=== PATIENT | female | born 1995 | race African-American/Black ===

== ENCOUNTER 2025-02-18 17:14 | Inpatient (IN) | payer MEDICAID ==
[~2025-02-18] VITALS: Ht 167.6 cm; Wt 72.0 kg
[2025-02-18 18:06] VITALS: PULSE 103; RESP 18; O2SAT 98
--- NOTE | 2025-02-18 18:11 | ED.PDOC ---
Sickle cell HPI Comments 29-year-old female with PMHx Sickle Cell Disease presents with a chief complaint of body pain x onset yesterday. Patient states that her last sickle cell crisis was x October 2024. Patient reports that her pain is localized all over, describes as sharp, and rates her pain a 10/10 at this time. Patient mentions that she takes Oxycodone at home, but has been out of them. No other symptoms or modifying factors present at this time. Chief Complaint: SICKLE CELL CRISIS Time Seen by MD: 17:59 Primary Care Provider: RUDY Luther Notes: Medications, Allergies Information Source: Patient Mode of Arrival: Ambulatory Severity: Moderate Timing: Days Duration: Since onset Prehospital treatment: None Onset: Spontaneous Symptoms: Pain Location of pain: Chest, Abdomen, Flank, Back, Extremity, Hands, Feet History of: Pain Associated signs and symptoms: None Past Medical History PAST MEDICAL HISTORY: Anemia, Anxiety, Asthma Surgical History: Denies all surgeries DOCUMENT MANAGEMENT SPECIALIST History: No Pertinent DOCUMENT MANAGEMENT SPECIALIST History Family History Family History: Reviewed,noncontributory to illness Social History Smoker: Cigarettes, Less Than 1 Pack/Day Alcohol: Denies ETOH Use Drugs: Denies Drug Use Lives In: Home Constitutional: denies: chills, diaphoresis, fatigue, fever, malaise, sweats, weakness, others EENTM: denies: blurred vision, double vision, ear bleeding, ear discharge, ear drainage, ear pain, ear ringing, eye pain, eye redness, hearing loss, mouth pain, mouth swelling, nasal discharge, nose bleeding, nose congestion, nose pain, photophobia, tearing, throat pain, throat swelling, voice changes, others Respiratory: denies: cough, hemoptysis, orthopnea, SOB at rest, shortness of breath, SOB with excertion, stridor, wheezing, others Cardiovascular: denies: chest pain, dizzy spells, diaphoresis, Dyspnea on exertion, edema, irregular heart beat, left arm pain, lightheadedness, palpitations, PND, syncope, others Gastrointestinal: denies: abdomen distended, abdominal pain, blood streaked bowels, constipated, diarrhea, dysphagia, difficulty swallowing, hematemesis, melena, nausea, poor appetite, poor fluid intake, rectal bleeding, rectal pain, vomiting, others Genitourinary: denies: abnormal vagina bleeding, burning, dyspareunia, dysuria, flank pain, frequency, hematuria, incontinence, pain, , vagina discharge, urgency, others Neurological: denies: dizziness, fainting, headache, left sided numbness, left sided weakness, numbness, paresthesia, pre-existing deficit, right sided numbness, right sided weakness, seizure, speech problems, tingling, tremors, weakness, others Musculoskeletal: reports: muscle pain; denies: back pain, gout, joint pain, j oint swelling, muscle stiffness, neck pain, others Integumetry: denies: bruises, change in color, change in hair/nails, dryness, laceration, lesions, lumps, rash, wounds, others Allergic/Immunocompromised: denies: Difficulty Healing, Frequent Infections, Hives, Itching, others Hematologic/Lymphatic: denies: anemia, blood clots, easy bleeding, easy bruising, swollen glands, others Endocrine: denies: excessive hunger, excessive sweating, excessive thirst, excessive urination, flushing, intolerance to cold, intolerance to heat, unexplained weight gain, unexplained weight loss, others Psychiatric: denies: anxiety, bipolar disorder, depression, hopeless, panic disorder, schizophrenia, sleepless, suicidal, others All Other Systems: Reviewed and Negative Physical Exam General Appearance: Moderate Distress, Thin HEENT: Normal ENT Inspection, Pharynx Normal, TMs Normal Neck: Full Range of Motion, Non-Tender, Normal, Normal Inspection Respiratory: Chest Non-Tender, Lungs Clear, No Accessory Muscle Use, No Respiratory Distress, Normal Breath Sounds Cardiovascular: No Edema, No JVD, No Murmur, No Gallop, Normal Peripheral Pulses, Regular Rate/Rhythm Breast Exam: Deferred Gastrointestinal: No Organomegaly, Non Tender, No Pulsatile Mass, Normal Bowel Sounds, Soft Genitalia: Deferred Pelvic: Deferred Rectal: Deferred Extremities: No calf tenderness, Normal capillary refill, Normal inspection, Normal range of motion, No pedal edema Musculoskeletal : Apperance: Normal Neurologic: Alert, painting supervisor II-XII nml as Tested, Motor Weakness, Normal Affect, Normal Mood, No Sensory Deficits Cerebellar Function: Normal Reflexes: Normal Skin: Dry, Normal Color, Warm Lymphatic: No Adenopathy Was a procedure done? Was a procedure done?: No Sickle cell Differential Dx Differential Diagnosis: Acute Chest Syndrome, Aplastic Crisis X-Ray, Labs, Meds, VS Vital Signs Date Time Temp Pulse Resp B/P (MAP) Pulse Ox O2 Delivery O2 Flow Rate FiO2 02/18/25 18:25 103 18 92/45 02/18/25 18:08 98.8 94 16 114/64 (81) 100 98.8 02/18/25 18:06 103 18 98 Room Air* 0 21 02/18/25 18:06 98.4 103 17 92/45 (61) 98 98.4 Lab Test 02/18/25 18:18 Range/Units White Blood Count 5.2 4.4-10.8 10^3/uL Red Blood Count 3.90 L 4.0-5.20 10^6/uL Hemoglobin 10.6 L 12.2-16.2 g/dL Hematocrit 32.0 L 36.0-46.0 % Mean Corpuscular Volume 81.8 80.0-100.0 fL Mean Corpuscular Hemoglobin 27.1 L 28.0-32.0 pg Mean Corpuscular Hemoglobin Concent 33.1 32.0-36.0 g/dL Red Cell Distribution Width 14.2 11.8-14.3 % Platelet Count 215 140-450 10^3/uL Mean Platelet Volume 7.9 6.9-10.8 fL Neutrophils (%) (Auto) 53.3 37.0-80.0 % Lymphocytes (%) (Auto) 32.0 10.0-50.0 % Monocytes (%) (Auto) 7.5 0.0-12.0 % Eosinophils (%) (Auto) 6.7 0.0-7.0 % Basophils (%) (Auto) 0.5 0.0-2.0 % Neutrophils # (Auto) 2.8 1.6-8.6 10 ^3/uL Lymphocytes # (Auto) 1.7 0.4-5.4 10 ^3/uL Monocytes # (Auto) 0.4 0-1.3 10 ^3/uL Eosinophils # (Auto) 0.4 0-0.8 10 ^3/uL Basophils # (Auto) 0 0-0.2 10 ^3/uL Nucleated Red Blood Cells 0.1 % Reticulocyte Count (auto) 0.76 0.5-1.5 % Sodium Level Pending Potassium Level Pending Chloride Level Pending Carbon Dioxide Level Pending Anion Gap Pending Blood Urea Nitrogen Pending Creatinine Pending Glomerular Filtration Rate Calc Pending BUN/Creatinine Ratio Pending Serum Glucose Pending Calcium Level Pending Current Medications Medications (Trade) Dose Ordered Sig/Marci Route Start Time Stop Time Status Last Admin Sodium Chloride 1,000 ml @ 1,000 mls/hr Q1H ONCE IV 02/18/25 18:15 02/18/25 19:14 02/18/25 18:24 Hydromorphone HCl (Dilaudid Injection) 1 mg ONCE ONCE IV 02/18/25 18:15 02/18/25 18:16 DC 02/18/25 18:25 Ondansetron HCl (Zofran) 4 mg ONCE ONCE IV 02/18/25 18:15 02/18/25 18:16 DC 02/18/25 18:25 IV Hep-Lock was established. The patient was given a 1 L bolus of normal saline The patient was given Dilaudid 1 mg IV push The patient was given Zofran 4 mg IV push The patient's reticulocyte count is 0.76 The patient's hemoglobin is 10.6 and hematocrit of 32 The patient is showing signs of anemia At this time, we are going to admit the patient with a diagnosis of sickle cell crisis Time of 1ST Reevaluation: 18:29 Reevaluation 1ST: Unchanged Patient Education/Counseling: Diagnosis, Treatment, Prognosis Family Education/Counseling: Diagnosis, Treatment, Prognosis Departure 1 Departure Time of Disposition: 18:52 Impression: Primary Impression: Sickle cell crisis Disposition: ADMITTED INPATIENT Admit to: Med Surg Condition: Fair Critical Care Note Critical Care Time?: No Stability Stability form required: Yes Unstable for transfer: ED Physician Assesment (Clinical assesment) Heart Score Heart Score: Heart Score Response (Comments) Value History N/A 0 EKG N/A 0 Age N/A 0 Risk Factors N/A 0 Troponin N/A 0 Total 0 I personally scribed for JONNY HOOPER MD ([email or web address]) on 02/18/25 at 18:11. Electronically submitted by Rafal Metzger ([email or web address]). JONNY HOOPER MD February 18, 2025 18:11
[2025-02-18] MEDS: SODIUM CHLORIDE 0.9% 1,000 ML IV ONE ×2 (18:24→19:59)
[2025-02-18] MEDS: HYDROmorphone HCL 2 MG/ML VL/or syr IV ONE (18:25)
[2025-02-18] MEDS: ONDANSETRON HCL 4 MG/2 ML VIAL IV ONE (18:25)
[2025-02-18 18:47] LABS: Basophils # (auto) 0 10 ^3/uL (0-0.2); Basophils % (auto) 0.5 % (0.0-2.0); Eosinophils # (auto) 0.4 10 ^3/uL (0-0.8); Eosinophils % (auto) 6.7 % (0.0-7.0); Hemoglobin 10.6 g/dL (12.2-16.2); Lymphocytes # (auto) 1.7 10 ^3/uL (0.4-5.4); Mean Corpuscular Hemoglobin 27.1 pg (28.0-32.0); Mean Corpuscular Hgb Conc. 33.1 g/dL (32.0-36.0); Mean Corpuscular Volume 81.8 fL (80.0-100.0); Monocytes # (auto) 0.4 10 ^3/uL (0-1.3); Monocytes % (auto) 7.5 % (0.0-12.0); Neutrophils # (auto) 2.8 10 ^3/uL (1.6-8.6); Neutrophils % (auto) 53.3 % (37.0-80.0); Nucleated Red Blood Cells % 0.1 %; Platelet Count (auto) 215 10^3/uL (140-450); Red Cell Distribution Width 14.2 % (11.8-14.3); White Blood Cell 5.2 10^3/uL (4.4-10.8)
[2025-02-18 18:48] LABS: Chloride 107 mmol/L (98-107); Sodium 141 mmol/L (136-145)
[2025-02-18 18:49] LABS: Anion Gap 9 (5-15); Calcium 9.2 mg/dL (8.7-10.4); Carbon Dioxide 25 mmol/L (20-31)
[2025-02-18 18:54] LABS: Glucose 76 mg/dL (74-106)
[2025-02-18 18:58] LABS: BUN/Creatinine Ratio 5.7 (10.0-20.0); Blood Urea Nitrogen < 5 mg/dL (9-23)
[2025-02-18 19:30] VITALS: PULSE 70; RESP 15; O2SAT 92
[2025-02-18] MEDS ORDERED: ONDANSETRON HCL 4 MG/2 ML VIAL IV PRN (19:45)
[2025-02-18] MEDS ORDERED: ACETAMINOPHEN 325 MG TAB PO PRN (19:45)
[2025-02-18] MEDS ORDERED: ALBUTEROL SULF 2.5 MG/0.5ML(0.5%) NEB SOLN NEB PRN (19:45)
[2025-02-18] MEDS ORDERED: HYDROcodone-ACET 5/325MG TAB PO PRN (19:45)
[2025-02-18 19:47] VITALS: BP 92/45; PULSE 98; RESP 18; TEMP 98.8; O2SAT 99
--- NOTE | 2025-02-18 21:49 | DVHHP2 ---
History of Present Illness Reason for Visit: Body pain History of Present Illness 29-year-old female with a history of sickle cell disease presents for evaluation of body pain. Patient reports a two day history of generalized body pain. She states having last sickle cell crisis three months ago. Denies shortness or breath or chest pain. Past Medical History Anemia, asthma and sickle cell disease Past Surgical History Denies Family History Noncontributory Smoke: <1 pack per day ALCOHOL: none Drugs: None Lives: with Family Review of Systems Review of Systems Review of systems are currently negative otherwise addressed in HPI. Allergies: Coded Allergies: NO KNOWN ALLERGIES (Unverified , 05/13/16) Medications Current Medications Medications Dose Ordered Sig/Marci Route Start Time Stop Time Status Last Admin Dose Admin Acetaminophen/ Hydrocodone Bitart 1 tab Q4HP PRN PO 02/18/25 19:45 Temazepam 15 mg QHSP PRN PO 02/18/25 19:45 Ondansetron HCl 4 mg Q4HP PRN IV 02/18/25 19:45 Acetaminophen 650 mg Q6HP PRN PO 02/18/25 19:45 Morphine Sulfate 2 mg Q4HPRN PRN IV 02/18/25 19:45 Ferrous Sulfate 325 mg BIDWM PO 02/19/25 08:00 Albuterol 2.5 mg Q6HPRN PRN NEB 02/18/25 19:45 Exam Vital Signs Vital Signs Date Time Temp Pulse Resp B/P (MAP) Pulse Ox O2 Delivery O2 Flow Rate FiO2 02/18/25 19:47 98.8 98 18 92/45 99 98.8 02/18/25 19:30 Room Air* 0 21 Exam Gen: 29-year-old female in no apparent distress. Skin: Warm, dry, normal color and texture, no rash. HEENT: Normocephalic atraumatic, mucous membranes moist and pink. Neck: Cervical and supraclavicular nodes normal without enlargement, trachea is midline, thyroid gland is normal without masses. Pulmonary: Clear to auscultation and percussion bilaterally. Cardiac: Regular rate and rhythm. No murmur Abdomen: Soft, nontender, nondistended, bowel sounds present all 4 quadrants, no guarding, no rigidity, no organomegaly. Extremities: No cyanosis, clubbing, no edema Neuro: Cranial nerves II through XII grossly intact, normal affect and speech, no focal motor deficits. Labs/Xrays Labs Test 02/18/25 18:18 Range/Units White Blood Count 5.2 4.4-10.8 10^3/uL Red Blood Count 3.90 L 4.0-5.20 10^6/uL Hemoglobin 10.6 L 12.2-16.2 g/dL Hematocrit 32.0 L 36.0-46.0 % Mean Corpuscular Volume 81.8 80.0-100.0 fL Mean Corpuscular Hemoglobin 27.1 L 28.0-32.0 pg Mean Corpuscular Hemoglobin Concent 33.1 32.0-36.0 g/dL Red Cell Distribution Width 14.2 11.8-14.3 % Platelet Count 215 140-450 10^3/uL Mean Platelet Volume 7.9 6.9-10.8 fL Neutrophils (%) (Auto) 53.3 37.0-80.0 % Lymphocytes (%) (Auto) 32.0 10.0-50.0 % Monocytes (%) (Auto) 7.5 0.0-12.0 % Eosinophils (%) (Auto) 6.7 0.0-7.0 % Basophils (%) (Auto) 0.5 0.0-2.0 % Neutrophils # (Auto) 2.8 1.6-8.6 10 ^3/uL Lymphocytes # (Auto) 1.7 0.4-5.4 10 ^3/uL Monocytes # (Auto) 0.4 0-1.3 10 ^3/uL Eosinophils # (Auto) 0.4 0-0.8 10 ^3/uL Basophils # (Auto) 0 0-0.2 10 ^3/uL Nucleated Red Blood Cells 0.1 % Reticulocyte Count (auto) 0.76 0.5-1.5 % Sodium Level 141 136-145 mmol/L Potassium Level 4.0 3.5-5.1 mmol/L Chloride Level 107 98-107 mmol/L Carbon Dioxide Level 25 20-31 mmol/L Anion Gap 9 5-15 Blood Urea Nitrogen < 5 L 9-23 mg/dL Creatinine 0.88 0.550-1.02 mg/dL Glomerular Filtration Rate Calc 90 >90 mL/min BUN/Creatinine Ratio 5.7 L 10.0-20.0 Serum Glucose 76 74-106 mg/dL Calcium Level 9.2 8.7-10.4 mg/dL Assessment/Plan Assessment/Plan Assessment Sickle cell crisis Mild anemia Chronic pain syndrome Plan Maintenance IV fluids Pain management Resume home medications Continue treatment per orders. Plan discussed with: Patient My Orders Orders - YOANA RODRIGUES Procedure Category Date Status Time Sodium Chloride 0.9% PHA 02/18/25 In Process 19:45 Admit ADMIT 02/18/25 Transmitted 19:38 Hydrocodone-Acet PHA 02/18/25 In Process 5/325mg Tab ([place] 19:45 Temazepam (Restoril) PHA 02/18/25 In Process 19:45 Ondansetron Hcl PHA 02/18/25 In Process (Zofran) 19:45 Complete Blood Count LAB 02/19/25 Verified 04:00 Condition: Stable ROSALBA 02/18/25 In Process 19:38 Acetaminophen Tablet PHA 02/18/25 In Process (Tylenol Tablet) 19:45 Bedrest With Bathroom ROSALBA 02/18/25 In Process Privileg 19:38 Regular Diet DIET 02/19/25 Transmitted Breakfast Ferrous Sulfate Tablet PHA 02/19/25 In Process 08:00 Albuterol Medneb PHA 02/18/25 In Process (Ventolin Medneb) 19:45 Morphine Sulfate PHA 02/18/25 In Process Injection 19:45 Date of Service: February 18, 2025 Billing Provider: YOANA RODRIGUES Common Visit Codes: [id number] INP/OBS CARE (MOD) YOANA RODRIGUES February 18, 2025 21:49
[2025-02-18] MEDS: MORPHINE SULFATE 4 MG/ML SYR/VIAL IV PRN (23:07)
[2025-02-18 23:52] VITALS: BP 113/72; PULSE 68; RESP 18; TEMP 98.9; O2SAT 98
[2025-02-19] VITALS (11 sets, daily range): BP systolic 97–120; BP diastolic 58–72; PULSE 60–78; RESP 16–18; TEMP 98–98.9; O2SAT 97–100
[2025-02-19] MEDS: TEMAZEPAM 15 MG CAP PO PRN (01:20)
[2025-02-19] MEDS: FERROUS SULFATE 325mg EC TAB PO SCH (08:57)
[2025-02-19 09:15] LABS: Basophils # (auto) 0 10 ^3/uL (0-0.2); Basophils % (auto) 0.5 % (0.0-2.0); Eosinophils # (auto) 0.4 10 ^3/uL (0-0.8); Hematocrit 29.4 % (36.0-46.0); Hemoglobin 9.6 g/dL (12.2-16.2); Lymphocytes # (auto) 1.4 10 ^3/uL (0.4-5.4); Lymphocytes % (auto) 34.1 % (10.0-50.0); Mean Corpuscular Hemoglobin 26.7 pg (28.0-32.0); Mean Corpuscular Hgb Conc. 32.7 g/dL (32.0-36.0); Mean Corpuscular Volume 81.7 fL (80.0-100.0); Monocytes # (auto) 0.3 10 ^3/uL (0-1.3); Monocytes % (auto) 6.9 % (0.0-12.0); Neutrophils # (auto) 2.1 10 ^3/uL (1.6-8.6); Neutrophils % (auto) 49.5 % (37.0-80.0); Platelet Count (auto) 199 10^3/uL (140-450); Red Cell Distribution Width 14.3 % (11.8-14.3); White Blood Cell 4.2 10^3/uL (4.4-10.8)
[2025-02-19] MEDS: SODIUM CHLORIDE 0.9% 1,000 ML IV SCH (10:15)
[2025-02-19] MEDS: OXYCODONE W/ ACETAMINOPHEN 5/325MG TABLET PO SCH (14:50)
--- NOTE | 2025-02-19 18:11 | DVHPNRES ---
Progress Note Date Seen: February 19, 2025 Resident Creating Document: KHARI SCHUMACHER RESIDENT Medical Necessity Reason Pt with a Central, PICC or Fol: No Subjective Review of Systems Patient seen and examined at bed side no new complains pain is under control Objective vital signs Vital Sign Date Time Temp Pulse Resp B/P (MAP) Pulse Ox O2 Delivery O2 Flow Rate FiO2 02/19/25 17:00 98.0 67 18 106/64 (78) 98 98.0 02/19/25 10:35 Room Air* 0 21 Total Intake and Output 02/18/25 02/18/25 02/19/25 15:00 23:00 07:00 Intake Total 1000 ml 400 ml Balance 1000 ml 400 ml medications Current Medications Medications Dose Ordered Sig/Marci Route Start Time Stop Time Status Last Admin Dose Admin Acetaminophen/ Hydrocodone Bitart 1 tab Q4HP PRN PO 02/18/25 19:45 Temazepam 15 mg QHSP PRN PO 02/18/25 19:45 02/19/25 01:20 15 MG Ondansetron HCl 4 mg Q4HP PRN IV 02/18/25 19:45 Acetaminophen 650 mg Q6HP PRN PO 02/18/25 19:45 Morphine Sulfate 2 mg Q4HPRN PRN IV 02/18/25 19:45 02/19/25 13:22 2 MG Ferrous Sulfate 325 mg BIDWM PO 02/19/25 08:00 02/19/25 08:57 325 MG Albuterol 2.5 mg Q6HPRN PRN NEB 02/18/25 19:45 Oxycodone/ Acetaminophen 1 tab TID PO 02/19/25 14:00 02/19/25 14:50 1 TAB Sodium Chloride 1,000 ml @ 100 mls/hr Q10H IV 02/19/25 10:15 02/19/25 10:15 100 MLS/HR Examination General Appearance: Cooperative. Well developed. Well nourished. NAD Head Exam: Normal inspection Neck Exam: Normal inspection. Non-tender. Normal alignment Pulmonary/Respiratory: Chest non-tender. Clear bilateral breath sounds Cardiovascular/Chest: Regular rate and rhythm. No murmurs. No JVD. Peripheral Pulses: 2+ Radial (R). 2+ Radial (L). 2+ Pedal (R). 2+ Pedal (L) Abdominal Exam: Normal bowel sounds. Soft. Nontender. No hepatospenomegaly. No masses Ankle Exam: Negative ankle edema Lower extremities: Negative lower extremity edema Neuro/Mental Status: A&O x4. Coherent Thoughts/Psych: Normal thought pattern. Appropriate mood and affect. Good judgement and insight Appearance: In no acute distress Skin Exam: Normal inspection. Normal color. Warm. Dry laboratory and microbiology Laboratory Tests 02/19/25 08:59 02/18/25 18:18 Test 02/18/25 18:18 Range/Units Serum Glucose 76 74-106 mg/dL Problem List/Assessment/Plan Problem List/Assessment/Plan Sickle cell crisis dehydration microcytic hypochromic anemia ? iron deficiency anemia Plan/Recommendation -IV fluid -Pain management: Oxycodone 5/325 mg TID -Iron panel for possible iron def -Monitor H&H -Continue monitor rft and lft goals of care discussed >22 min, full code Plan discussed with Plan discussed with: Patient, Other My Orders My Orders Orders - KHARI SCHUMACHER RESIDENT Procedure Category Date Status Time Oxycodone W/ Acet PHA 02/19/25 In Process /325mg Tab (Percocet 14:00 Sodium Chloride 0.9% PHA 02/19/25 In Process 10:15 Date of Service: February 19, 2025 Billing Provider: DIANA LOWERY MD Common Visit Codes: [id number] INP/OBS CARE(HIGH) KHARI SCHUMACHER February 19, 2025 18:11 DIANA LOWERY MD February 19, 2025 21:44
[2025-02-19 18:36] LABS: Albumin 3.9 g/dL (3.2-4.8); Alkaline Phosphatase 48 U/L (46-116); Anion Gap 5 (5-15); Aspartate Aminotransferase 15 U/L (13-40); BUN/Creatinine Ratio 8.3 (10.0-20.0); Bilirubin, Total 0.8 mg/dL (0.2-1.0); Carbon Dioxide 24 mmol/L (20-31); Glucose 88 mg/dL (74-106); Potassium 4.2 mmol/L (3.5-5.1); Sodium 142 mmol/L (136-145); Total Protein 6.8 g/dL (5.7-8.2)
[2025-02-19 18:38] LABS: Alanine Aminotransferase < 9 U/L (7-40); Blood Urea Nitrogen 7 mg/dL (9-23); Chloride 113 mmol/L (98-107)
[2025-02-20] VITALS (9 sets, daily range): BP systolic 103–127; BP diastolic 60–75; PULSE 58–84; RESP 15–18; TEMP 97.3–97.8; O2SAT 100
[2025-02-20 06:23] LABS: Basophils # (auto) 0 10 ^3/uL (0-0.2); Basophils % (auto) 0.6 % (0.0-2.0); Eosinophils # (auto) 0.5 10 ^3/uL (0-0.8); Eosinophils % (auto) 11.9 % (0.0-7.0); Hemoglobin 8.9 g/dL (12.2-16.2); Lymphocytes # (auto) 1.6 10 ^3/uL (0.4-5.4); Lymphocytes % (auto) 39.5 % (10.0-50.0); Mean Corpuscular Volume 81.9 fL (80.0-100.0); Monocytes # (auto) 0.3 10 ^3/uL (0-1.3); Monocytes % (auto) 7.5 % (0.0-12.0); Neutrophils # (auto) 1.7 10 ^3/uL (1.6-8.6); Neutrophils % (auto) 40.5 % (37.0-80.0); Nucleated Red Blood Cells % 0.2 %; Platelet Count (auto) 170 10^3/uL (140-450); Red Cell Distribution Width 14.2 % (11.8-14.3); White Blood Cell 4.1 10^3/uL (4.4-10.8)
[2025-02-20 06:46] LABS: % Iron Saturation 6.4 % (15-50)
[2025-02-20 07:48] LABS: INR 1.11 (0.9-1.15); Partial Thromboplastin Time 24.8 SEC (24.5-34.5); Prothrombin Time 11.6 sec (9.3-11.8)
--- NOTE | 2025-02-20 10:01 | DVH ---
CHEST RADIOGRAPH Indication: sickle cell Technique: Single frontal view of the chest was obtained Comparison: None FINDINGS: Lines and Tubes: None Lungs: No focal consolidation. Pleura: No effusion. No pneumothorax. Cardiomediastinal contours: Unremarkable Bones: No acute osseous abnormality. IMPRESSION: No acute cardiopulmonary disease.
--- NOTE | 2025-02-20 16:01 | DVHPNRES ---
Progress Note Date Seen: February 20, 2025 Resident Creating Document: KHARI SCHUMACHER RESIDENT Medical Necessity Reason Pt with a Central, PICC or Fol: No Subjective Review of Systems patient seen and examined at bed side pain is under control no active bleed no new complains Objective vital signs Vital Sign Date Time Temp Pulse Resp B/P (MAP) Pulse Ox O2 Delivery O2 Flow Rate FiO2 02/20/25 12:54 97.4 77 18 127/75 (92) 100 97.4 02/20/25 10:30 Room Air 0.0 02/20/25 10:30 21 Total Intake and Output 02/19/25 02/19/25 02/20/25 15:00 23:00 07:00 Intake Total 2600 ml 100 ml Balance 2600 ml 100 ml medications Current Medications Medications Dose Ordered Sig/Marci Route Start Time Stop Time Status Last Admin Dose Admin Acetaminophen/ Hydrocodone Bitart 1 tab Q4HP PRN PO 02/18/25 19:45 Temazepam 15 mg QHSP PRN PO 02/18/25 19:45 02/19/25 01:20 15 MG Ondansetron HCl 4 mg Q4HP PRN IV 02/18/25 19:45 Acetaminophen 650 mg Q6HP PRN PO 02/18/25 19:45 Morphine Sulfate 2 mg Q4HPRN PRN IV 02/18/25 19:45 02/19/25 18:41 2 MG Ferrous Sulfate 325 mg BIDWM PO 02/19/25 08:00 02/20/25 09:12 325 MG Albuterol 2.5 mg Q6HPRN PRN NEB 02/18/25 19:45 Oxycodone/ Acetaminophen 1 tab TID PO 02/19/25 14:00 02/20/25 15:33 1 TAB Iron Sucrose 110 ml @ 110 mls/hr DAILY@1200 IV 02/20/25 12:00 02/21/25 12:59 UNV Examination General Appearance: Cooperative. Well developed. Well nourished. NAD Head Exam: Normal inspection Neck Exam: Normal inspection. Non-tender. Normal alignment Pulmonary/Respiratory: Chest non-tender. Clear bilateral breath sounds Cardiovascular/Chest: Regular rate and rhythm. No murmurs. No JVD. Peripheral Pulses: 2+ Radial (R). 2+ Radial (L). 2+ Pedal (R). 2+ Pedal (L) Abdominal Exam: Normal bowel sounds. Soft. Nontender. No hepatospenomegaly. No masses Ankle Exam: Negative ankle edema Lower extremities: Negative lower extremity edema Neuro/Mental Status: A&O x4. Coherent Thoughts/Psych: Normal thought pattern. Appropriate mood and affect. Good judgement and insight Appearance: In no acute distress Skin Exam: Normal inspection. Normal color. Warm. Dry laboratory and microbiology Laboratory Tests 02/20/25 05:48 02/19/25 08:59 Test 02/19/25 08:59 Range/Units Serum Glucose 88 74-106 mg/dL Problem List/Assessment/Plan Problem List/Assessment/Plan Sickle cell crisis dehydration microcytic hypochromic anemia iron deficiency anemia Plan/Recommendation -continue to monitor H&H, ranging reticulocyte count, LDH 135. Trending down hemoglobin, possible crisis. Continue to monitor hemoglobin and hematocrit. Blood transfusion if hemoglobin less than seven. -IV fluid -Pain management: Oxycodone 5/325 mg TID -Iron panel for possible iron def -Continue monitor rft and lft goals of care discussed >22 min, full code Plan discussed with Plan discussed with: Patient, Other (RN) My Orders My Orders Orders - KHARI SCHUMACHER RESIDENT Procedure Category Date Status Time Chest Xray 1 View XY 02/20/25 Resulted 07:07 Iron Sucrose Complex PHA 02/20/25 Logged (Venofer) 12:00 Date of Service: February 20, 2025 Billing Provider: DIANA LOWERY MD Common Visit Codes: [id number] INP/OBS CARE(HIGH) KHARI SCHUMACHER February 20, 2025 16:01 DIANA LOWERY MD February 21, 2025 05:10
[2025-02-20] MEDS: IRON SUCROSE COMPLEX 110 ML IV SCH (18:23)
[2025-02-21] VITALS (7 sets, daily range): BP systolic 104–117; BP diastolic 57–78; PULSE 55–82; RESP 15–16; TEMP 36.6; O2SAT 98–100
[2025-02-21 06:50] LABS: Basophils # (auto) 0 10 ^3/uL (0-0.2); Basophils % (auto) 0.5 % (0.0-2.0); Eosinophils # (auto) 0.5 10 ^3/uL (0-0.8); Eosinophils % (auto) 10.1 % (0.0-7.0); Hematocrit 26.9 % (36.0-46.0); Lymphocytes # (auto) 1.6 10 ^3/uL (0.4-5.4); Lymphocytes % (auto) 35.9 % (10.0-50.0); Mean Corpuscular Hemoglobin 27.3 pg (28.0-32.0); Mean Corpuscular Hgb Conc. 33.4 g/dL (32.0-36.0); Mean Corpuscular Volume 81.9 fL (80.0-100.0); Monocytes # (auto) 0.3 10 ^3/uL (0-1.3); Monocytes % (auto) 7.4 % (0.0-12.0); Neutrophils # (auto) 2.1 10 ^3/uL (1.6-8.6); Neutrophils % (auto) 46.1 % (37.0-80.0); Nucleated Red Blood Cells % 0.1 %; Platelet Count (auto) 152 10^3/uL (140-450); Red Blood Cells 3.29 10^6/uL (4.0-5.20); Red Cell Distribution Width 14.1 % (11.8-14.3); White Blood Cell 4.5 10^3/uL (4.4-10.8)
[2025-02-21 06:51] LABS: Potassium 3.9 mmol/L (3.5-5.1); Sodium 143 mmol/L (136-145)
[2025-02-21 06:52] LABS: Anion Gap 7 (5-15); Calcium 8.9 mg/dL (8.7-10.4); Carbon Dioxide 26 mmol/L (20-31)
[2025-02-21 06:57] LABS: BUN/Creatinine Ratio 6.3 (10.0-20.0); Glucose 87 mg/dL (74-106)
[2025-02-21 06:59] LABS: Blood Urea Nitrogen 5 mg/dL (9-23); Chloride 110 mmol/L (98-107)
[2025-02-21] MEDS ORDERED: PERCOT PO (11:55)
[2025-02-21] MEDS ORDERED: POLY335015 PO (12:18)
[2025-02-21] MEDS ORDERED: FER325T PO (12:18)
--- NOTE | 2025-02-21 16:00 | DVHDSRES ---
Discharge Summary Date of Admission Resident Creating Document: CARLITO DEVINE RESIDENT February 18, 2025 at 19:38 Date of Discharge: February 21, 2025 Admitting Diagnosis Worsening generalized body pain Wounds: none Labs/Diagnostic Data: Laboratory Results Test 02/21/25 05:10 02/20/25 10:27 02/20/25 05:48 02/19/25 08:59 White Blood Count 4.5 10^3/uL (4.4-10.8) Red Blood Count 3.29 10^6/uL (4.0-5.20) Hemoglobin 9.0 g/dL (12.2-16.2) Hematocrit 26.9 % (36.0-46.0) Mean Corpuscular Volume 81.9 fL (80.0-100.0) Mean Corpuscular Hemoglobin 27.3 pg (28.0-32.0) Mean Corpuscular Hemoglobin Concent 33.4 g/dL (32.0-36.0) Red Cell Distribution Width 14.1 % (11.8-14.3) Platelet Count 152 10^3/uL (140-450) Mean Platelet Volume 8.5 fL (6.9-10.8) Neutrophils (%) (Auto) 46.1 % (37.0-80.0) Lymphocytes (%) (Auto) 35.9 % (10.0-50.0) Monocytes (%) (Auto) 7.4 % (0.0-12.0) Eosinophils (%) (Auto) 10.1 % (0.0-7.0) Basophils (%) (Auto) 0.5 % (0.0-2.0) Neutrophils # (Auto) 2.1 10 ^3/uL (1.6-8.6) Lymphocytes # (Auto) 1.6 10 ^3/uL (0.4-5.4) Monocytes # (Auto) 0.3 10 ^3/uL (0-1.3) Eosinophils # (Auto) 0.5 10 ^3/uL (0-0.8) Basophils # (Auto) 0 10 ^3/uL (0-0.2) Nucleated Red Blood Cells 0.1 % Sodium Level 143 mmol/L (136-145) Potassium Level 3.9 mmol/L (3.5-5.1) Chloride Level 110 mmol/L (98-107) Carbon Dioxide Level 26 mmol/L (20-31) Anion Gap 7 (5-15) Blood Urea Nitrogen 5 mg/dL (9-23) Creatinine 0.80 mg/dL (0.550-1.02) Glomerular Filtration Rate Calc 101 mL/min (>90) BUN/Creatinine Ratio 6.3 (10.0-20.0) Serum Glucose 87 mg/dL (74-106) Calcium Level 8.9 mg/dL (8.7-10.4) Reticulocyte Count (auto) 0.91 % (0.5-1.5) Prothrombin Time 11.6 sec (9.3-11.8) Prothrombin Time INR 1.11 (0.9-1.15) Activated Partial Thromboplast Time 24.8 SEC (24.5-34.5) Iron Level 19 ug/dL (50-170) Total Iron Binding Capacity 299 ug/dL (250-425) Percent Iron Saturation 6.4 % (15-50) Ferritin 3.5 ng/mL (10-291) Lactate Dehydrogenase 135 U/L (120-246) Beta HCG, Quantitative 0.5 mIU/mL (1.5-4.2) Total Bilirubin 0.8 mg/dL (0.2-1.0) Aspartate Amino Transferase (AST) 15 U/L (13-40) Alanine Aminotransferase (ALT) < 9 U/L (7-40) Alkaline Phosphatase 48 U/L (46-116) Total Protein 6.8 g/dL (5.7-8.2) Albumin 3.9 g/dL (3.2-4.8) Other Laboratory Tests 02/21/25 05:10 Brief Hx & Hospital Course: Patient is a 29-year-old female with a history of sickle cell disease presented to the hospital with a chief complaint of worsening generalized body pains. She reported the last time she had a sickle cell crisis out about 3 months ago. Patient reported she ran out of her pain medications. While in the hospital patient was started on pain management with oxycodone and given fluids. Iron panel was ordered for suspected iron-deficiency which showed decreased iron and ferritin and decreased % saturation, was started on IV iron. H&H were monitored which were stable. Patient reported that the pain had improved and she returned to her baseline. Patient discharged in stable condition to home and was prescribed oxycodone for 10 days and ferrous sulfate 325 mg b.i.d. and advised to follow up with the primary care provider or in the discharge clinic. Physical exam on the day of discharge: General Appearance: Cooperative. Well developed. Well nourished. Head Exam: Normal inspection Neck Exam: Normal inspection. Non-tender. Normal alignment Pulmonary/Respiratory: Chest non-tender. Clear bilateral breath sounds Cardiovascular/Chest: Regular rate and rhythm. No murmurs. No JVD. Peripheral Pulses: 2+ Radial (R). 2+ Radial (L). 2+ Pedal (R). 2+ Pedal (L) Abdominal Exam: Normal bowel sounds. Soft. Nontender. No hepatosplenomegaly. No masses Ankle Exam: Negative ankle edema Lower extremities: Negative lower extremity edema Neuro/Mental Status: A&O x4. Coherent Thoughts/Psych: Normal thought pattern. Appropriate mood and affect. Good judgement and insight Appearance: In no acute distress Skin Exam: Normal inspection. Normal color. Warm. Dry Goals of care discussed with the patient for 20 minutes; full code Discussed with Dr. Dumas Consults/Reason for consult none Operations or Procedures none Condition at Discharge: Good Final Diagnosis/Problems List Sickle cell crisis dehydration microcytic hypochromic anemia iron deficiency anemia Discharge Disposition: Home Discharge Instruct/Medications Diet: Regular Activity: No Restrictions, As Tolerated Follow Up/Referral: Follow up with the PCP in one week Medications: as per EMR Discharge Statement: "Patient was advised to return to the ER or call 911 if any headaches, dizziness, shortness of breath, chest pain, abdominal pain, bleeding, fevers, or worsening of medical condition. Patient was counseled about treatment plan, medications, possible side effects, patientverbalized understanding. All questions were answered to the best of my ability. This discharge took greater then 30 minutes in planning, reviewing documentation, counseling the patient, and discussing with other team members." ASSESSMENT ASSESSMENT Assessment Sickle cell crisis dehydration microcytic hypochromic anemia iron deficiency anemia Addendum Addendum Addendum I was physically present for the braun portions of the service provided to patient by THE RESIDENT. I have reviewed the documentation, discussed the case with resident and agree with the resident's documentation except as noted. Also the patient's clinical case was discussed with the patient's nurse. This medical document was created using an electronic medical record system with computerized dictation system. Although this document has been carefully reviewed, there might still be some phonetic and typographical errors. These areas are purely typographical due to imperfections of the software programs, and do not reflect any compromise in the patient's medical care. Late signature. Date of Service: February 21, 2025 Billing Provider: MAGALYS DUMAS MD Common Visit Codes: 31584-ECH/OBS DISCH DAY >30min Secondary Visit Codes: 64407-GLYUNAHB CARE PLAN 30 MINUTES (20 minutes) CARLITO DEVINE RESIDENT February 21, 2025 16:00 MAGALYS DUMAS MD Feb 22, 2025 12:50
== END 2025-02-21 18:30 | disposition home or self-care (01) | DRG 662 ==
LOC: ER 17:14 → OVERFLOW 19:38 → EAST 23:49
PROVIDERS: ADMIT Internal Medicine; ATTEND Emergency Medicine
DX: D57.00 Hb-SS disease with crisis, unspecified (principal); E86.0 Dehydration; D50.9 Iron deficiency anemia, unspecified; J45.909 Unspecified asthma, uncomplicated; F41.9 Anxiety disorder, unspecified; G89.4 Chronic pain syndrome; F17.210 Nicotine dependence, cigarettes, uncomplicated
CPT/HCPCS: 36415; 71045; 80048; 80053; 82728; 83540; 83550; 83615; 84702; 85025; 85045; 85610; 85730; 96361; 96374; 96375; G0378; J1756; J2405